=== PATIENT | female | born 1935 | race Caucasian/White ===

== ENCOUNTER 2020-10-09 23:37 | Inpatient (IN) | payer OTHER ==
[2020-10-10] MEDS ORDERED: MAG HYDROX/AL HYDROX/SIMETH 30 ML UNIT-DOSE CUP PO ONE (01:02)
[2020-10-10] MEDS ORDERED: FAMOTIDINE 20 MG/50 ML IVPB 20 MG/50 ML MG IVPB ONE ×2 (01:02→01:29)
[2020-10-10] MEDS ORDERED: ACETAMINOPHEN 500 MG TABLET (FP) PO ONE (01:02)
[2020-10-10] MEDS ORDERED: ONDANSETRON 4 MG/2 ML VIAL ONE ×2 (01:29→08:12)
[2020-10-10] MEDS ORDERED: ACETAMINOPHEN 325 MG TABLET (FP) ONE (01:29)
[2020-10-10] MEDS ORDERED: MAG HYDROX/AL HYDROX/SIMETH 30 ML UNIT-DOSE CUP ONE (01:30)
[2020-10-10 02:05] LABS: BASO % 0.7 % (0-2.0); EOS % 2.6 % (0-4.5); HEMATOCRIT 39.7 % (32.4-45.2); HEMOGLOBIN 13.1 GM/dL (10.7-15.3); LYMPH % 31.3 % (8-40); MCH 28.9 pg (25.7-33.7); MEAN CELL VOLUME 87.7 fl (80-96); MEAN PLT VOLUME 8.9 fl (7.5-11.1); MONO % 8.1 % (3.8-10.2); NEUT % 57.3 % (42.8-82.8); PLATELET COUNT 269 K/MM3 (134-434); RBC 4.53 M/mm3 (3.60-5.2); RDW 15.6 % (11.6-15.6); WHITE BLOOD COUNT 6.3 K/mm3 (4.0-10.0)
[2020-10-10 02:22] LABS: INR 1.03 (0.83-1.09); PROTHROMBIN TIME (PATIENT) 12.4 SEC (9.7-13.0); URINE APPEARANCE CLEAR; URINE BILIRUBIN NEGATIVE (NEGATIVE); URINE COLOR YELLOW; URINE GLUCOSE (UA) 3+ (NEGATIVE); URINE KETONE NEGATIVE (NEGATIVE); URINE LEUK ESTERASE NEGATIVE (NEGATIVE); URINE NITRITE NEGATIVE (NEGATIVE); URINE PROTEIN NEGATIVE (NEGATIVE); URINE UROBILINOGEN 0.2 mg/dL (0.2-1.0)
[2020-10-10 02:25] LABS: ACTIVATED PTT 27.6 SECONDS (25.2-36.5)
[2020-10-10 02:30] LABS: CHLORIDE 102 mmol/L (98-107); POTASSIUM 4.1 mmol/L (3.5-5.1); SODIUM 137 mmol/L (136-145)
[2020-10-10 03:01] LABS: ALBUMIN 3.8 g/dl (3.4-5.0); ALK PHOS 80 U/L (45-117); ANION GAP 8 MMOL/L (8-16); BILIRUBIN,TOTAL 0.4 mg/dL (0.2-1); BLOOD UREA NITROGEN 15.1 mg/dL (7-18); CALCIUM 9.6 mg/dL (8.5-10.1); CO2 27 mmol/L (21-32); CREATININE 0.9 mg/dL (0.55-1.3); GLUCOSE,RANDOM 143 mg/dL (74-106); LIPASE 211 U/L (73-393); SGOT/AST 67 U/L (15-37); SGPT/ALT 64 U/L (13-61); TOT PROT 7.9 g/dl (6.4-8.2)
[2020-10-10] MEDS ORDERED: LACTATED RINGERS SOLUTION 1000 ML INFUS.BAG IV ONE ×2 (03:38→04:53)
[2020-10-10] MEDS ORDERED: morphine CARPU-JECT 4 MG/1 ML DISP.SYRIN IVPUSH ONE (08:07)
[2020-10-10] MEDS ORDERED: ONDANSETRON 4 MG/2 ML VIAL IVPUSH ONE (08:10)
[2020-10-10] MEDS ORDERED: morphine SULFATE 4 MG/ML VIAL ONE (08:12)
[2020-10-10] MEDS ORDERED: ACETAMINOPHEN 1000 MG/100 ML VIAL (NON FORMULARY) IVPB PRN (10:47)
[2020-10-10] MEDS ORDERED: ONDANSETRON 4 MG/2 ML VIAL IVPB PRN (10:47)
[2020-10-10] MEDS: INSULIN SLIDING SCALE (NOVOLOG) 1 VIAL SQ SCH ×3 (11:13→21:59)
[2020-10-10] MEDS ORDERED: METOCLOPRAMIDE HCL INJECTION 10 MG/2 ML VIAL ONE (17:17)
[2020-10-10] MEDS: METOCLOPRAMIDE HCL INJECTION 10 MG/2 ML VIAL IVPUSH SCH (17:19)
[2020-10-10 20:56] VITALS: BMI 32.8
[2020-10-10] MEDS: PANTOPRAZOLE SODIUM 40 MG VIAL IVPUSH SCH (21:52)
[2020-10-10] MEDS: HEPARIN NA (PORCINE) 5,000 UNITS/ML 1ML VIAL SQ SCH (21:52)
[2020-10-11] MEDS: METOCLOPRAMIDE HCL INJECTION 10 MG/2 ML VIAL IVPUSH SCH ×2 (00:40→09:40)
[2020-10-11] MEDS: INSULIN SLIDING SCALE (NOVOLOG) 1 VIAL SQ SCH ×4 (06:08→21:42)
[2020-10-11 09:08] LABS: HEMATOCRIT 39.9 % (32.4-45.2); HEMOGLOBIN 13.3 GM/dL (10.7-15.3); MCH 29.2 pg (25.7-33.7); MCHC 33.2 g/dl (32.0-36.0); MEAN CELL VOLUME 87.8 fl (80-96); MEAN PLT VOLUME 8.8 fl (7.5-11.1); PLATELET COUNT 259 K/MM3 (134-434); RBC 4.55 M/mm3 (3.60-5.2); RDW 15.9 % (11.6-15.6)
[2020-10-11 09:31] LABS: ALBUMIN 3.5 g/dl (3.4-5.0); BLOOD UREA NITROGEN 10.4 mg/dL (7-18); CALCIUM 8.9 mg/dL (8.5-10.1)
[2020-10-11 09:32] LABS: MAGNESIUM 2.1 mg/dL (1.8-2.4)
[2020-10-11 09:34] LABS: CREATININE 0.7 mg/dL (0.55-1.3)
[2020-10-11 09:35] LABS: TOT PROT 7.2 g/dl (6.4-8.2)
[2020-10-11 09:36] LABS: BILIRUBIN,TOTAL 0.6 mg/dL (0.2-1)
[2020-10-11] MEDS: HEPARIN NA (PORCINE) 5,000 UNITS/ML 1ML VIAL SQ SCH (09:40)
[2020-10-11] MEDS: PANTOPRAZOLE SODIUM 40 MG VIAL IVPUSH SCH (09:40)
[2020-10-12 06:09] VITALS: BP 120/38; PULSE 65; TEMP 98.6
[2020-10-12] MEDS: INSULIN SLIDING SCALE (NOVOLOG) 1 VIAL SQ SCH ×2 (06:22→10:02)
[2020-10-12] MEDS: HEPARIN NA (PORCINE) 5,000 UNITS/ML 1ML VIAL SQ SCH (09:46)
[2020-10-12] MEDS ORDERED: PANTOPRAZOLE 40 MG TABLET PO SCH (10:00)
[2020-10-13] MEDS ORDERED: LEVOTHYROXINE NA 100 MCG TABLET (FP) PO SCH (07:00)
[2020-10-13] MEDS ORDERED: sitaGLIPtin PHOSPHATE 50 MG TABLET PO SCH (07:00)
[2020-10-13] MEDS ORDERED: VALSARTAN 160 MG TABLET PO SCH (10:00)
[2020-10-13] MEDS ORDERED: amLODIPine BESYLATE 10 MG TABLET (FP) PO SCH (10:00)
[2020-10-13] MEDS ORDERED: ROSUVASTATIN CA 10 MG TABLET (FP) PO SCH (22:00)
== END 2020-10-12 14:42 | disposition home or self-care (01) | DRG 394 ==
LOC: JER 23:37 → JERBED 10-10 08:07 → J6S 10-10 18:41
PROVIDERS: ADMIT Family Medicine; ATTEND Family Medicine
PROC: 0DB78ZX Excision of Stomach, Pylorus, Via Natural or Artificial Opening Endoscopic, Diagnostic (ICD-10-PCS; 2020-10-11)
PROC: 0DB68ZX Excision of Stomach, Via Natural or Artificial Opening Endoscopic, Diagnostic (ICD-10-PCS; principal; 2020-10-11 11:45)
DX: K55.059 Acute (reversible) ischemia of intestine, part and extent unspecified (principal); E87.2 Acidosis; I10 Essential (primary) hypertension; E78.5 Hyperlipidemia, unspecified; Z79.84 Long term (current) use of oral hypoglycemic drugs; E11.43 Type 2 diabetes mellitus with diabetic autonomic (poly)neuropathy; K31.84 Gastroparesis; K22.2 Esophageal obstruction; K44.9 Diaphragmatic hernia without obstruction or gangrene; K25.9 Gastric ulcer, unspecified as acute or chronic, without hemorrhage or perforation
CPT/HCPCS: 36415; 71045-TC-FY; 74177-TC; 80053; 80074; 81003; 82962; 83036; 83605; 83690; 83735; 84443; 84484; 85025; 85027; 85610; 85651; 85730; 87086; 88305-TC; 93005; 93010; 99285-25; C9803; J1644; Q9967; U0003

== ENCOUNTER 2023-08-11 16:16 | Emergency (ER) | payer OTHER ==
[2023-08-11 16:25] VITALS: RESP 18; TEMP 98.4; BMI 30.7
[2023-08-11] MEDS ORDERED: LACTATED RINGERS SOLUTION 1000 ML INFUS.BAG IV ONE (16:59)
[2023-08-11 17:19] VITALS: BP 121/48; PULSE 69
[2023-08-11 18:53] LABS: BASO % 0.8 % (0-2.0); HEMATOCRIT 40.8 % (32.4-45.2); HEMOGLOBIN 13.4 GM/dL (10.7-15.3); LYMPH % 35.4 % (8-40); MCH 28.1 pg (25.7-33.7); MCHC 32.8 g/dl (32.0-36.0); MEAN CELL VOLUME 85.6 fl (80-96); MEAN PLT VOLUME 8.4 fl (7.5-11.1); MONO % 8.9 % (3.8-10.2); NEUT % 52.9 % (42.8-82.8); PLATELET COUNT 257 10^3/uL (134-434); RBC 4.77 M/mm3 (3.60-5.2); RDW 13.7 % (11.6-15.6); WHITE BLOOD COUNT 6.7 K/mm3 (4.0-10.0)
[2023-08-11 19:00] LABS: POTASSIUM 4.4 mmol/L (3.5-5.1)
[2023-08-11 19:02] LABS: ALBUMIN 3.9 g/dl (3.4-5.0); BLOOD UREA NITROGEN 19.4 mg/dL (7-18)
[2023-08-11 19:05] LABS: CREATININE 0.9 mg/dL (0.55-1.3)
[2023-08-11 19:07] LABS: BILIRUBIN,TOTAL 0.3 mg/dL (0.2-1)
[2023-08-11 20:38] LABS: EPI CELLS 9 /uL (0-25.1); HYALINE CASTS 1 /uL (0-3.1); URINE APPEARANCE CLEAR; URINE BACTERIA 162 /uL (0-1359); URINE BILIRUBIN NEGATIVE (NEGATIVE); URINE COLOR YELLOW; URINE GLUCOSE (UA) 3+ (NEGATIVE); URINE KETONE NEGATIVE (NEGATIVE); URINE LEUK ESTERASE NEGATIVE (NEGATIVE); URINE NITRITE NEGATIVE (NEGATIVE); URINE PROTEIN 1+ (NEGATIVE); URINE UROBILINOGEN 0.2 mg/dL (0.2-1.0)
[2023-08-11 21:13] LABS: URINE RBC 102.6 /uL (0-23.9)
[2023-08-11 21:14] LABS: URINE WBC 190.9 /uL (0-25.8); YEAST RARE (NEGATIVE)
== END 2023-08-11 20:50 | disposition home or self-care (01) ==
LOC: JER 16:16
DX: R73.9 Hyperglycemia, unspecified (principal); Z20.822 Contact with and (suspected) exposure to COVID-19
CPT/HCPCS: 0241U-QW; 36415; 80053; 81003; 82010; 85025; 87086; 99283-25